=== PATIENT | male | born 1965 | race Caucasian/White ===

== ENCOUNTER 2023-10-07 19:54 | Emergency (ER) | payer BC, OTHER ==
[2023-10-07 20:37] VITALS: PULSE 50; RESP 18; TEMP 98.4; BMI 34.0
[2023-10-07] MEDS ORDERED: AMOX TR/POT CLAV 875MG/125MG TABLETS (FP) ONE (23:37)
[2023-10-07] MEDS ORDERED: DIPHTH,PERTUSS(ACELL),TET 0.5 ML DISP.SYRIN IM ONE (23:38)
[2023-10-07] MEDS ORDERED: RABIES VACCINE (PCEC)/PF 2.5 UNIT/VIAL IM ONE (23:43)
[2023-10-07] MEDS ORDERED: RABIES IMMUNE GLOBULIN 300 UNITS/1 ML VIAL ONE ×2 (23:43→23:57)
[2023-10-07] MEDS: AMOX TR/POT CLAV 875MG/125MG TABLETS (FP) PO ONE (23:50)
[2023-10-07] MEDS: DIPHTH,PERTUSS(ACELL),TET 0.5 ML DISP.SYRIN IM ONE (23:51)
[2023-10-07] MEDS: RABIES VACCINE (PCEC)/PF 2.5 UNIT/VIAL IM ONE (23:54)
[2023-10-08] MEDS: RABIES IMMUNE GLOBULIN 300 UNITS/1 ML VIAL IM ONE (00:17)
[2023-10-08] MEDS ORDERED: ONDANSETRON *ODT* 4 MG TABLET ONE (00:40)
[2023-10-08 00:52] VITALS: BP 164/91
== END 2023-10-08 00:52 | disposition home or self-care (01) ==
LOC: JER 19:54 → JERFT 19:54 → JER 10-08 00:52
PROC: 3E0234Z Introduction of Serum, Toxoid and Vaccine into Muscle, Percutaneous Approach (ICD-10-PCS; 2023-10-07)
PROC: 3E0234Z Introduction of Serum, Toxoid and Vaccine into Muscle, Percutaneous Approach (ICD-10-PCS; 2023-10-07)
PROC: 3E023GC Introduction of Other Therapeutic Substance into Muscle, Percutaneous Approach (ICD-10-PCS; principal; 2023-10-08)
DX: S61.451A Open bite of right hand, initial encounter (principal); S61.452A Open bite of left hand, initial encounter; S61.051A Open bite of right thumb without damage to nail, initial encounter; W55.01XA Bitten by cat, initial encounter; Y93.K9 Activity, other involving animal care; Y92.009 Unspecified place in unspecified non-institutional (private) residence as the place of occurrence of the external cause
CPT/HCPCS: 73140-TC-RT-FY; 90375; 90675; 90715; 99284-25

== ENCOUNTER 2023-10-10 19:14 | Emergency (ER) | payer BC ==
[2023-10-10 19:23] VITALS: BP 158/86; PULSE 78; RESP 16; TEMP 98.3; BMI 43.0
[2023-10-10] MEDS ORDERED: RABIES VACCINE (PCEC)/PF 2.5 UNIT/VIAL IM ONE (19:48)
[2023-10-10] MEDS: RABIES VACCINE (PCEC)/PF 2.5 UNIT/VIAL IM ONE (20:10)
== END 2023-10-10 20:13 | disposition home or self-care (01) ==
LOC: JERFT 19:14
PROC: 3E0234Z Introduction of Serum, Toxoid and Vaccine into Muscle, Percutaneous Approach (ICD-10-PCS; principal; 2023-10-10)
DX: Z29.14 Encounter for prophylactic rabies immune globulin (principal)
CPT/HCPCS: 90675; 99281-25

== ENCOUNTER 2023-10-14 19:30 | Emergency (ER) | payer BC ==
[2023-10-14 19:38] VITALS: BP 178/98; PULSE 85; RESP 18; TEMP 98.9; BMI 34.0
[2023-10-14] MEDS ORDERED: RABIES VACCINE (PCEC)/PF 2.5 UNIT/VIAL IM ONE (20:22)
[2023-10-14] MEDS: RABIES VACCINE (PCEC)/PF 2.5 UNIT/VIAL IM ONE (20:31)
== END 2023-10-14 20:46 | disposition home or self-care (01) ==
LOC: JERFT 19:30
PROC: 3E0234Z Introduction of Serum, Toxoid and Vaccine into Muscle, Percutaneous Approach (ICD-10-PCS; principal; 2023-10-14)
DX: Z29.14 Encounter for prophylactic rabies immune globulin (principal)
CPT/HCPCS: 90675; 99281-25

== ENCOUNTER 2023-10-22 22:43 | Emergency (ER) | payer BC ==
[2023-10-22 22:48] VITALS: PULSE 85; RESP 20; TEMP 97.6; BMI 34.0
[2023-10-22] MEDS ORDERED: RABIES VACCINE (PCEC)/PF 2.5 UNIT/VIAL IM ONE (23:28)
[2023-10-22 23:30] VITALS: BP 137/92
[2023-10-22] MEDS: RABIES VACCINE (PCEC)/PF 2.5 UNIT/VIAL IM ONE (23:33)
== END 2023-10-22 23:36 | disposition home or self-care (01) ==
LOC: JER 22:43
PROC: 3E0234Z Introduction of Serum, Toxoid and Vaccine into Muscle, Percutaneous Approach (ICD-10-PCS; principal; 2023-10-22)
DX: Z29.14 Encounter for prophylactic rabies immune globulin (principal)
CPT/HCPCS: 90675; 99281-25

== ENCOUNTER 2023-10-30 21:13 | Emergency (ER) | payer BC ==
[2023-10-30 21:23] VITALS: BP 176/91; PULSE 78; RESP 18; TEMP 97.9; BMI 34.0
== END 2023-10-30 22:20 | disposition home or self-care (01) ==
LOC: JERFT 21:13
DX: Z29.14 Encounter for prophylactic rabies immune globulin (principal)
CPT/HCPCS: 99281-25

== ENCOUNTER → 2024-02-05 | Day surgery (SDC) | payer BC ==
[2024-02-02 15:35] VITALS: BMI 34.0
[~2024-02-05] MED LIST: LIDOCAINE HCL/PF 2% SDV 5ML VIAL ONE; PROPOFOL 40 ML ONE
[2024-02-05 10:00] VITALS: PULSE 72; RESP 18
[2024-02-05 10:36] VITALS: TEMP 97.8
[2024-02-05 11:07] VITALS: BP 139/89
== END | disposition home or self-care (01) ==
LOC: FASU-ENDO 09:11
PROVIDERS: ATTEND Internal Medicine Gastroenterology
PROC: 0DJD8ZZ Inspection of Lower Intestinal Tract, Via Natural or Artificial Opening Endoscopic (ICD-10-PCS; principal; 2024-02-05 10:14)
DX: Z12.11 Encounter for screening for malignant neoplasm of colon (principal); K64.1 Second degree hemorrhoids; Z86.010 Personal history of colon polyps

== ENCOUNTER 2025-04-07 09:11 | Day surgery (SDC) | payer OTHER ==
[2025-04-06 11:13] VITALS: BMI 33.6
[2025-04-07 09:45] VITALS: RESP 16
[2025-04-07 11:58] VITALS: BP 128/74; PULSE 80; TEMP 97.8
== END 2025-04-07 11:25 | disposition home or self-care (01) ==
LOC: FASU-ENDO 09:11
PROVIDERS: ATTEND Internal Medicine Gastroenterology
PROC: 0DB68ZX Excision of Stomach, Via Natural or Artificial Opening Endoscopic, Diagnostic (ICD-10-PCS; 2025-04-07)
PROC: 0DB98ZX Excision of Duodenum, Via Natural or Artificial Opening Endoscopic, Diagnostic (ICD-10-PCS; principal; 2025-04-07 10:42)
DX: K29.50 Unspecified chronic gastritis without bleeding (principal); R10.13 Epigastric pain; K22.89 Other specified disease of esophagus; K31.89 Other diseases of stomach and duodenum
CPT/HCPCS: 88305-TC; 88342-TC